=== PATIENT | female | born 1990 | race Caucasian/White ===

== ENCOUNTER 2021-03-11 11:41 | Observation (INO) | payer OTHER ==
[~2021-03-11] VITALS: Ht 167.6 cm; Wt 89.4 kg
[2021-03-11 12:42] LABS: BILIRUBIN,URINE NEGATIVE (NEGATIVE); BLOOD, URINE NEGATIVE (NEGATIVE); CLARITY/URINE CLEAR (CLEAR); COLOR,URINE YELLOW (YELLOW); GLUCOSE,URINE NEGATIVE (NEGATIVE); KETONES,URINE NEGATIVE (NEGATIVE); LEUKOCYTE ESTERASE ,URINE TRACE (NEGATIVE); NITRITE, URINE NEGATIVE (NEGATIVE); PROTEIN URINE NEGATIVE (NEGATIVE); UROBILINOGEN,URINE 0.2 (0.2-1.0)
[2021-03-11 13:57] LABS: BACTERIA,URINE FEW /HPF (None Seen); MUCUS,URINE 1+ /LPF (None Seen); RBC,URINE 0-3 /HPF (0-3)
== END 2021-03-11 14:40 | disposition home or self-care (01) ==
LOC: SPU 11:41
PROVIDERS: ADMIT Specialist; ATTEND Specialist
DX: O34.63 Maternal care for abnormality of vagina, third trimester (principal); N89.8 Other specified noninflammatory disorders of vagina; Z3A.30 30 weeks gestation of pregnancy; Z79.899 Other long term (current) drug therapy
CPT/HCPCS: 76815; 81000; 87086; G0378

== ENCOUNTER 2021-04-28 10:30 | Observation (INO) | payer OTHER ==
[~2021-04-28] VITALS: Ht 167.6 cm; Wt 93.0 kg
== END 2021-04-28 12:30 | disposition home or self-care (01) ==
LOC: INTOOBSV 10:30 → SPU 10:30
PROVIDERS: ADMIT Specialist; ATTEND Specialist
DX: O62.9 Abnormality of forces of labor, unspecified (principal); Z3A.37 37 weeks gestation of pregnancy
CPT/HCPCS: 76815; 81002; G0378

== ENCOUNTER 2021-04-30 16:58 | Inpatient (IN) | payer OTHER, SELFPAY ==
[~2021-04-30] VITALS: Ht 167.6 cm; Wt 96.6 kg
[2021-04-30] MEDS ORDERED: LR 500 ML IV ONE ×2 (17:15→22:30)
[2021-04-30] MEDS ORDERED: OXYTOCIN/0.9 % SODIUM CHLORIDE 1,000 ML IV SCH (17:15)
[2021-04-30] MEDS ORDERED: NALBUPHINE HCL 10 MG/ML AMP IVP PRN (17:15)
[2021-04-30] MEDS ORDERED: TERBUTALINE SULFATE 1 MG/ML VIAL SUBCUT ONE (17:15)
[2021-04-30] MEDS ORDERED: LR 1,000 ML IV ONE (17:15)
[2021-04-30 17:58] LABS: EOSINOPHILS # (AUTO) 0.1 K/uL (0.0-0.4); HEMOGLOBIN 11.5 g/dL (12.0-16.0); WHITE BLOOD COUNT (AUTO) 10.6 K/uL (4.8-10.8)
[2021-04-30 18:01] VITALS: BP_SYST 131
[2021-04-30 18:04] LABS: BASOPHILS % (AUTO) 0.4 % (0.0-2.0); EOSINOPHILS % (AUTO) 0.9 % (0.0-4.0); HEMATOCRIT 32.7 % (36-48); LYMPHOCYTES # (AUTO) 2.7 K/uL (1.0-5.5); LYMPHOCYTES % (AUTO) 25.5 % (20.5-51.5); MEAN CORPUSCULAR HEMOGLOBIN 32 pg (27-31); MEAN CORPUSCULAR HGB CONC 35 % (32-36); MEAN CORPUSCULAR VOLUME 91 fL (79.0-98.0); MONOCYTES # (AUTO) 0.6 K/uL (0.0-1.0); MONOCYTES % (AUTO) 5.6 % (1.7-9.3); NEUTROPHILS # (AUTO) 7.2 K/uL (1.8-7.7); NEUTROPHILS % (AUTO) 67.6 % (40.0-70.0); PLATELET COUNT (AUTO) 248 K/uL (130-430); RED BLOOD CELL COUNT(AUTO) 3.58 MIL/uL (4.2-6.2); RED CELL DISTRIBUTION WIDTH 14.1 % (9.0-15.0)
[2021-04-30] MEDS: LR 1,000 ML IV SCH ×3 (18:26→22:44)
[2021-04-30] MEDS ORDERED: fentaNYL CITRATE/PF 100 MCG/2 ML AMP ONE (21:49)
[2021-04-30] MEDS ORDERED: ROPIVACAINE HCL/PF 0.2% 200 ML ONE (21:49)
[2021-04-30] MEDS ORDERED: FENT2mCg/mL-ROPIVA0.2%/NS EPID 200 ML EP SCH (22:30)
[2021-05-01] MEDS: LR 1,000 ML IV SCH (04:35)
[2021-05-01] MEDS ORDERED: OXYTOCIN/0.9 % SODIUM CHLORIDE 1,000 ML IV ONE (09:30)
[2021-05-01] MEDS ORDERED: WITCH HAZEL LEAF 1 MED.PAD MED.PAD TP PRN (09:30)
[2021-05-01] MEDS ORDERED: DERMOPLAST SPRAY TP PRN (09:30)
[2021-05-01] MEDS ORDERED: OXYCODONE/ACETAMINOPHEN 5-325 TABLET ONE (09:42)
[2021-05-01] MEDS: IBUPROFEN 600 MG TABLET PO SCH ×2 (12:06→18:04)
[2021-05-01] MEDS: OXYCODONE/ACETAMINOPHEN 5-325 TABLET PO PRN ×3 (16:19→20:29)
[2021-05-02] MEDS: OXYCODONE/ACETAMINOPHEN 5-325 TABLET PO PRN (01:52)
[2021-05-02] MEDS: IBUPROFEN 600 MG TABLET PO SCH ×3 (05:15→12:08)
[2021-05-02 07:07] LABS: BASOPHILS # (AUTO) 0.1 K/uL (0.0-0.2); BASOPHILS % (AUTO) 0.8 % (0.0-2.0); EOSINOPHILS # (AUTO) 0.2 K/uL (0.0-0.4); HEMOGLOBIN 9.7 g/dL (12.0-16.0); LYMPHOCYTES % (AUTO) 29.9 % (20.5-51.5); MEAN CORPUSCULAR HEMOGLOBIN 32 pg (27-31); MEAN CORPUSCULAR HGB CONC 35 % (32-36); MEAN CORPUSCULAR VOLUME 93 fL (79.0-98.0); MONOCYTES # (AUTO) 0.6 K/uL (0.0-1.0); MONOCYTES % (AUTO) 5.6 % (1.7-9.3); NEUTROPHILS # (AUTO) 6.1 K/uL (1.8-7.7); NEUTROPHILS % (AUTO) 61.7 % (40.0-70.0); PLATELET COUNT (AUTO) 210 K/uL (130-430); RED BLOOD CELL COUNT(AUTO) 3.01 MIL/uL (4.2-6.2); WHITE BLOOD COUNT (AUTO) 9.9 K/uL (4.8-10.8)
[2021-05-02] MEDS ORDERED: DOCUSATE SODIUM 100 MG CAPSULE PO SCH (09:00)
== END 2021-05-02 15:45 | disposition home or self-care (01) | DRG 807 ==
LOC: SPU 16:58 → OBSVTOIN 17:00
PROVIDERS: ADMIT Specialist; ATTEND Specialist
PROC: 10E0XZZ Delivery of Products of Conception, External Approach (ICD-10-PCS; principal; 2021-05-01)
PROC: 0KQM0ZZ Repair Perineum Muscle, Open Approach (ICD-10-PCS; 2021-05-01)
PROC: 3E0R3BZ Introduction of Anesthetic Agent into Spinal Canal, Percutaneous Approach (ICD-10-PCS; 2021-05-01)
PROC: 00HU33Z Insertion of Infusion Device into Spinal Canal, Percutaneous Approach (ICD-10-PCS; 2021-05-01)
PROC: 3E0234Z Introduction of Serum, Toxoid and Vaccine into Muscle, Percutaneous Approach (ICD-10-PCS; 2021-05-02)
DX: O69.81X0 Labor and delivery complicated by cord around neck, without compression, not applicable or unspecified (principal); Z37.0 Single live birth; O99.62 Diseases of the digestive system complicating childbirth; K58.9 Irritable bowel syndrome, unspecified; Z20.822 Contact with and (suspected) exposure to COVID-19; O70.1 Second degree perineal laceration during delivery; Z3A.38 38 weeks gestation of pregnancy; Z23 Encounter for immunization
CPT/HCPCS: 36415; 81002; 85025; 86592; 86870; 86886; 86900; 86901; 94760; G0378; J2590; J2790; J3010